=== PATIENT | male | born 1990 | race Caucasian/White ===

== ENCOUNTER 2024-05-22 11:05 | Emergency (ER) | payer BC, SELFPAY ==
[2024-05-22 11:12] VITALS: BP 133/87; PULSE 104; RESP 18; TEMP 36.5; O2SAT 100
[2024-05-22 11:41] LABS: Basophils Absolute Auto 0.1 K/mm3 (0.0-0.1); Basophils Percent Auto 0.4 % (0.2-1.2); Eosinophils Percent Auto 0.3 % (0-4.4); Hematocrit 47.4 % (42.0-52.0); Hemoglobin 16.7 g/dL (14.0-18.0); Immature Granulocyte Absolute 0.04 K/mm3 (0.00-0.031); Immature Granulocyte Percent A 0.3 % (0-0.5); Lymphocytes Absolute Auto 3.18 K/mm3 (0.9-3.2); Lymphocytes Percent Auto 23.1 % (18.3-44.2); Mean Corpuscular HGB Conc 35.2 g/dl (32-36); Mean Corpuscular Hemoglobin 29.7 pg (26-34); Mean Corpuscular Volume 84.3 fl (80-100); Mean Platelet Volume 9.4 fl (7.4-10.4); Monocytes Absolute Auto 0.8 K/mm3 (0.1-0.6); Monocytes Percent Auto 5.9 % (2.6-8.5); Neutrophils Absolute Auto 9.7 K/mm3 (1.3-6.7); Platelet Count Result 231 k/mm3 (150-375); Red Blood Count 5.62 M/mm3 (4.6-6.20); Red Cell Distribution Width 12.5 % (11.5-14.5); White Blood Count 13.8 K/mm3 (4.5-10.0)
[2024-05-22 11:54] LABS: Alanine Aminotransferase 20 U/L (6-50); Alkaline Phosphatase 65 U/L (38-126); Anion Gap 14 mmol/L (4-12); Aspartate Amino Transferase 22 U/L (17-59); Bilirubin,Total 1.6 mg/dL (0.2-1.3); Blood Urea Nitrogen 15 mg/dL (9-20); Calcium 9.9 mg/dL (8.4-10.2); Carbon Dioxide 25 mmol/L (22-30); Chloride 100 mmol/L (98-107); Estimated CRCL calculation 151 ml/min; Estimated Glomerular Filt Rate > 60; Glucose 100 mg/dL (65-110); Potassium 3.6 mmol/L (3.4-5.0); Sodium 139 mmol/L (137-145)
[2024-05-22 11:55] LABS: Add Urine Microscopic? YES; Appearance Urine Clear (Clear); Bacteria Urine None Seen /hpf; Bilirubin Urine Negative (Negative); Blood Urine Negative (Negative); Color Urine Dark Yellow (Yellow); Glucose Urine UA Negative (Negative); Ketones Urine 2+ mg/dL (Negative); Leukocyte Esterase Ur Negative LEU/UL (Negative); Nitrate Urine Negative (Negative); Non Pathogenic Casts 0-2; Protein Urine 1+ mg/dL (Negative); RBC Urine 0-2 /hpf (0-2); Specific Grav Ur 1.033 (1.001-1.035); Squamous Epithelial Cell Urine None Seen /hpf (Few); WBC Urine 0-5 /hpf (0-3)
--- NOTE | 2024-05-22 11:57 | ECG_ITS ---
Test Date: 2024-05-22 12:04:39 Measurements Intervals [place] Rate: 74 P: 5 DE: 147 QRS: 36 QRSD: 100 T: 55 QT: 392 QTc: 436 Interpretive Statements SINUS RHYTHM MINIMAL Q WAVES- INFERIOR LEADS BORDERLINE ECG No previous ECG available for comparison Electronically Signed On 05-22-2024 17:05:33 CDT by Tenzin Mccann D.O.
[2024-05-22 12:05] LABS: Amphetamine Screen Urine Negative (Negative); Barbiturate Screen Urine Negative (Negative); Benzodiazepines Screen Urine Negative (Negative); Cannabinoid Screen Urine Positive (Negative); Cocaine Screen Urine Negative (Negative); Methadone Screen Urine Negative (Negative); Opiate Screen Urine Negative (Negative); Phencyclidine Screen Urine Negative (Negative)
--- NOTE | 2024-05-22 12:06 | ED_ITS ---
HPI - Psych General Chief Complaint: Psychiatric Symptoms Stated Complaint: self harming behaviors Time Seen by Provider: 05/22/24 11:22 Source: patient and family ( Brother) Mode of arrival: ambulatory Limitations: no limitations History of Present Illness HPI Narrative: patient presents with self-harming behaviors. He notes that he cut his left forearm today multiple times with a box sealing machine feeder; he does state that he was trying to kill himself. He notes a prior attempt suicide in 2011 when he took multiple energy pills that he had purchased at a gas station. However, he subsequently vomited them up and for this reason never presented to a hospital to be assessed. He has a history of depression, anxiety, and ADHD. He has not required hospitalization for any psychiatric condition. Patient moved here in September and has been living with his brother who otherwise thought he was doing well in many respects. Patient previously had a history of hypertension but that resolved after he had intentional weight loss, going from 350 lb to 267 lb. Patient has a job at [employer] where he walks a lot and he has been going to the gym. Patient cannot recall his last Tetanus shot. Patient denies any chest pain, abdominal pain, or shortness of breath. 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 he had nausea and vomiting earlier this week and this caused him to miss a few shifts but has since resolved. Patient denies any auditory or visual hallucinations. he states he has not had any alcohol in while door has he had any marijuana in while and denies any other recreational drugs. He is on 20 mg c[address] prescribed by Dr. Ramírez, his PCP through [facility]. Also on atomaxazine through [facility] when he was diagnosed with ADHD after extensive neurologic/psychologic testing. he has an upcoming appointment on 06/09/2024 to be evaluated by a psychologist for autism. Related Data Allergies Allergy/AdvReac Type Severity Reaction Status Date / Time No Known Allergies Allergy Verified 05/22/24 11:09 [facility] Past Medical History Medical History (Updated 05/23/24 @ 06:50 by Marlin Diaz MD) ADHD Anxiety Depression Intentional weight loss 2023; 83lb Suicide attempt by drug ingestion energy pills 2011 Social History Social History Substance use type: marijuana Living arrangements: with family Additional living arrangements comments: brother Occupation/Education: occupation Additional occupation/education comments: [employer] Exam Narrative: GENERAL: Well-appearing, well-nourished, and in no acute distress. HEAD: Normocephalic, atraumatic. EYES: Non injected, non icteric ENT: Nares clear, no rhinorrhea or epistaxis. NECK: Supple. CHEST: Speaking in full sentences. No respiratory distress. Non labored. HEART: Regular rate and rhythm. . ABDOMEN: Obese but Soft, nondistended. EXTREMITIES: Normal range of motion. SKIN: Warm, dry. Patient has multiple superficial lacerations on the left fore arm, bleeding well controlled and none that are amenable to laceration repair. NEURO: No focal deficits. Alert and oriented x3. PSYCH: Congruent mood and affect. good eye contact. Endorses suicidal ideation. Denies auditory or visual hallucinations. Does not appear to be responding to internal stimuli. normal to high normal intelligence and cognition based on word choices in speech. pleasant, calm. Speech is appropriate volume and kajal. Course Vital Signs Vital signs: Vital Signs Temperature 97.7 F 05/22/24 11:12 Pulse Rate 104 H 05/22/24 11:12 Respiratory Rate 18 05/22/24 11:12 Blood Pressure 133/87 05/22/24 11:12 Pulse Oximetry 100 05/22/24 11:12 Temperature 97.8 F 05/22/24 15:32 Pulse Rate 78 05/22/24 15:32 Respiratory Rate 16 05/22/24 15:32 Blood Pressure 121/79 05/22/24 15:32 Pulse Oximetry 100 05/22/24 15:32 MDM - Psych MDM Narrative Medical decision making narrative: patient presents with self-injurious behavior. Patient cut his forearms multiple times superficially today; states he was trying to kill himself. In the emergency department he is afebrile vital signs notable for mild tachycardia. Patient cannot recall his last tetanus shot. Presuming it was as a child, will update today. Lacerations are otherwise superficial and not in need of repair (suture or dermabond). Workup is otherwise generally unremarkable as below and patient is at this time and medically cleared for evaluation by psych/crisis team and possible transfers/transportation as needed. Patient to be admitted for Voluntary psych placement. I am informed at approximately 15:45 that he has been accepted under Dr Manzanares at [facility]. Will arrange transportation. Remains stable. Differential Diagnosis Differential diagnosis: Likely suicidal ideation (with attempt; self injurious behavior), depression, drug-induced psychotic disorder and acute anxiety Lab Data Attestation: I reviewed the patient's lab results. Lab results narrative: Leukocytosis Mild hyperbilirubinemia Mild ketonuria 05/22/24 11:34 05/22/24 11:34 Labs: Lab Results 05/22/24 05/22/24 Range/Units 11:34 11:43 WBC 13.8 H (4.5-10.0) K/mm3 RBC 5.62 (4.6-6.20) M/mm3 Hgb 16.7 (14.0-18.0) g/dL Hct 47.4 (42.0-52.0) % MCV 84.3 (80-100) fl MCH 29.7 (26-34) pg MCHC 35.2 (32-36) g/dl RDW 12.5 (11.5-14.5) % Plt Count 231 (150-375) k/mm3 MPV 9.4 (7.4-10.4) fl Immature Gran % (Auto) 0.3 (0-0.5) % Neut % (Auto) 70.0 (45.5-73.1) % Lymph % (Auto) 23.1 (18.3-44.2) % [place] % (Auto) 5.9 (2.6-8.5) % Eos % (Auto) 0.3 (0-4.4) % Baso % (Auto) 0.4 (0.2-1.2) % Lymph # (Auto) 3.18 (0.9-3.2) K/mm3 [place] # (Auto) 0.8 H (0.1-0.6) K/mm3 Eos # (Auto) 0.0 (0-0.3) K/mm3 Baso # (Auto) 0.1 (0.0-0.1) K/mm3 Abs Immat Gran (auto) 0.04 H (0.00-0.031) K/mm3 Absolute Neuts (auto) 9.7 H (1.3-6.7) K/mm3 Absolute Nucleated RBC 0.000 (0.0-0.012) K/mm3 Nucleated RBC % 0.0 (0.0-0.2) % Sodium 139 (137-145) mmol/L Potassium 3.6 (3.4-5.0) mmol/L Chloride 100 (98-107) mmol/L Carbon Dioxide 25 (22-30) mmol/L Anion Gap 14 H (4-12) mmol/L BUN 15 (9-20) mg/dL Creatinine 0.80 (0.7-1.3) mg/dL Estim Creat Clear Calc 151 ml/min Estimated GFR > 60 (59 - ) Glucose 100 (65-110) mg/dL Calcium 9.9 (8.4-10.2) mg/dL Total Bilirubin 1.6 H (0.2-1.3) mg/dL AST 22 (17-59) U/L ALT 20 (6-50) U/L Alkaline Phosphatase 65 (38-126) U/L Total Protein 9.0 H (6.3-8.2) g/dL Albumin 5.0 (3.5-5.1) g/dL TSH (Reflex) 2.380 (0.465-4.68) uIU/mL Urine Color Dark yellow (Yellow) Urine Appearance Clear (Clear) Urine pH 6.0 (5.0-9.0) Ur Specific Ruth 1.033 (1.001-1.035) Urine Protein 1+ H (Negative) mg/dL Urine Glucose (UA) Negative (Negative) mg/dL Urine Ketones 2+ H (Negative) mg/dL Ur Blood (Man) Negative (Negative) Urine Nitrate Negative (Negative) Urine Bilirubin Negative (Negative) Urine Urobilinogen 1.0 (<2.0) mg/dL Leukocyte Esterase Rfl Negative (Negative) BOZENA/UL Urine RBC 0-2 (0-2) /hpf Urine WBC 0-5 (0-3) /hpf Ur Squamous Epith Cells None seen (Few) /hpf Urine Bacteria None seen /hpf Urine Casts 0-2 Salicylates < 1.0 L (2-20) mg/dL Urine Opiates Screen Negative (Negative) Urine Methadone Screen Negative (Negative) Acetaminophen < 10 L (10-30) ug/mL Ur Barbiturates Screen Negative (Negative) Ur Phencyclidine Scrn Negative (Negative) Ur Amphetamine Screen Negative (Negative) U Benzodiazepines Scrn Negative (Negative) Urine Cocaine Screen Negative (Negative) U Cannabinoids Screen Positive A (Negative) Ethyl Alcohol < 10 (<10) mg/dL SARS-CoV-2 RNA (RT-PCR) Negative (Negative) ECG Data EKG #1: Attestation: I personally reviewed and interpreted this ECG as follows: ECG completion date: 05/22/24 ECG completion time: 12:04 Interpretation: Normal sinus rhythm at a rate of 74 beats per minute. MI interval 147. QRS 100. QT/QTC 392/419. Good R-wave progression across the precordial leads. No T-wave inversions. Normal ECG. Normal axis. Discharge Plan Discharge Clinical Impression: Self-injurious behavior, Suicide attempt, Hyperbilirubinemia, Marijuana use, Superficial laceration of forearm Patient Disposition: Psychiatric Hosp Condition: Stable Additional Instructions: Tetanus was updated today. Follow-up/Referrals: PHYSICIAN NOT ON STAFF,NONSTAFF [Primary Care Provider] - Time of Disposition: 15:57
[2024-05-22 12:09] LABS: Ethanol < 10 mg/dL (<10)
[2024-05-22 12:14] LABS: Acetaminophen < 10 ug/mL (10-30); Salicylate < 1.0 mg/dL (2-20)
[2024-05-22 12:26] LABS: SARS-CoV-2 RNA PCR Negative (Negative)
--- NOTE | 2024-05-22 13:49 | PC.NURSE ---
brother of the [phone]
[2024-05-22] MEDS: TETANUS,DIPHTHERIA,AC PERTUSSIS ADULT (0.5 ML) BOOSTRIX IM (14:17)
[2024-05-22] MEDS: ACETAMINOPHEN 500 MG TABLET 1000 MG PO (14:18)
[2024-05-22 15:32] VITALS: BP 121/79; PULSE 78; RESP 16; TEMP 36.6; O2SAT 100
--- NOTE | 2024-05-22 15:36 | PC.NURSE ---
Faxed [facility] voluntary form
--- NOTE | 2024-05-22 19:32 | PC.NURSE ---
[facility] here at this time to transfer patient to [facility].
== END 2024-05-22 19:35 ==
PROVIDERS: Emergency Provider Student in an Organized Health Care Education/Training Program
DX: S51.812A Laceration without foreign body of left forearm, initial encounter (principal); E80.6 Other disorders of bilirubin metabolism; F12.90 Cannabis use, unspecified, uncomplicated; Z23 Encounter for immunization; Z11.52 Encounter for screening for COVID-19; F90.9 Attention-deficit hyperactivity disorder, unspecified type; F41.9 Anxiety disorder, unspecified; F32.A Depression, unspecified; R94.31 Abnormal electrocardiogram [ECG] [EKG]; X78.8XXA Intentional self-harm by other sharp object, initial encounter
CPT/HCPCS: 36415; 80053; 80143; 80179; 80307; 81001; 82077; 84443; 85025; 87635; 90471; 90715; 93005; 99285; A9270

== ENCOUNTER 2025-06-01 09:46 | Outpatient (CLI) | payer BC, SELFPAY ==
--- NOTE | ~2025-06-01 | US_ITS ---
EXAMINATION: US pelvic limited INDICATION: Incomplete emptying of bladder TECHNIQUE: Grayscale images of the pelvis were obtained. COMPARISON: None. FINDINGS: The bladder is not well distended. The prevoiding volume of the bladder is 100.0 mL. The post voiding volume of the bladder is 12 mL. No significant abnormality is seen in the bladder itself. IMPRESSION: The patient empties to 12 mL. Suboptimal bladder distention, but no abnormality is seen. Reviewed, dictated and finalized at location A. [facility]
== END 2025-06-01 09:47 | disposition home or self-care (01) ==
LOC: MICIMG 09:46
PROVIDERS: PCP Family Medicine; Visit Provider Family Medicine
DX: R33.9 Retention of urine, unspecified (principal)
CPT/HCPCS: 76857